=== PATIENT | female | born 1990 | race Caucasian/White ===

== ENCOUNTER 2021-12-26 00:27 | Day surgery (SDC) | payer OTHER, SELFPAY ==
[2021-12-20 14:52] VITALS: BMI 28.8
--- NOTE | 2021-12-20 15:25 | PC.NURSE ---
Report to the Outpatient Waiting Room, entrance under the green pavilion located off [facility], at time 0600 on date 12/26/2021. OR Time: 0730 Time changes happen often and if your time is changed the preop area will call you the afternoon before. - You and your visitor will be asked to self-screen and do not enter if you have any COVID symptoms. - Only one visitor and NO children visitors are allowed at this time. - The patient visitor is requested to leave or wait in car when not with patient due to restrictions. - A mask is required within the hospital. Patients may have clear liquids (water, carbonated beverages, clear teas, apple juice) until 3 hours prior to surgery with a maximum of 20 ounces 0430. - No food from midnight until time of surgery - Infants may have breast milk until 4 hours before surgery, infant formula 6 hours prior to surgery. - Children will be allowed to drink immediately following surgery. If applicable, please bring a bottle or sippy cup to assist with drinking. Juice, water, soda, and popsicles are readily available. For infants on formula, please bring formula the day of surgery. Pacifiers are allowed. Take the following medications with a SIP of water the morning of surgery: N/A Medications to discontinue per physician: Vitamin D2 Date to take last dose 12/17/2021 (takes weekly every Friday) Please no make-up, nail ethiopian, hairspray, perfume, deodorant, or body powder the day of surgery. No jewelry (including any body piercings) or valuables the day of surgery, leave them at home. Please take a shower or bath the night before, or the morning of, surgery with an antibacterial soap. Wear comfortable, loose fitting clothing. Children are encouraged to wear pajamas. - Jewelry must be removed prior to entering the operating room. Rings and piercings that are not removed may be cut off. - The hospital will not accept responsibility for valuables. - Please leave all valuables, including medications, at home the day of surgery. If you are going home after surgery, a licensed warehouse delivery driver must drive you home. - NO public transportation without another adult. - We recommend that an adult stay with you for 24 hours following discharge. - We also recommend that you do not drive, make important decision, drink alcoholic beverages, or take any drugs that were not prescribed by your health care provider for at least 24 hours after your discharge time. For Pediatric surgeries, we recommend two adults accompany the child home (only one inside the building at this time). Follow any additional instructions given to you from your surgeon. If you or anyone in your household have experienced Covid symptoms in the past week, please notify your surgeon or the nurse liaison at the phone number below for possible testing. Telephone instructions given to Danii Berkowitz and asked if any additional questions and then verbalized understanding. Patient advised to call surgeon office or pre surgery nurse liaison [phone] if any additional questions.
[2021-12-26] VITALS (7 sets, daily range): BP systolic 96–115; BP diastolic 64–80; PULSE 49–76; RESP 14–18; TEMP 36.3; O2SAT 100; BMI 28.8
--- NOTE | 2021-12-26 06:38 | P.PNAN_ITS ---
Anes - Initial Pre Proc Eval Procedure: Operation Date: 12/26/21 07:30 Proposed Procedures p Laparoscopic Bilateral Salpingectomy - Geovani Schwartz MD Date/Time: 12/26/21 06:38 Surgeon: Geovani Schwartz MD Pre Op Diagnosis: sterilization Patient Data Age: 31 Gender: F Height: 1.68 m Weight: 81.1 kg Last Vital Signs Temp 36.3 C L 12/26/21 06:10 Pulse 76 12/26/21 06:10 Resp 14 12/26/21 06:10 BP 110/72 12/26/21 06:10 Pulse Ox 100 12/26/21 06:10 O2 Del Method Room Air 12/26/21 06:10 Allergies Allergy/AdvReac Type Severity Reaction Status Date / Time Sulfa (Sulfonamide Allergy Unknown Hives Verified 12/26/21 06:13 Antibiotics) Home Medications Medication Instructions Recorded Confirmed Type ergocalciferol (vitamin D2) 1,250 See Rx Instructions .Route .COMPLEX 12/20/21 12/26/21 History mcg (50,000 unit) capsule methocarbamol 500 mg tablet 500 mg PO Q8H PRN Muscle Spasm 12/20/21 12/20/21 History Patient hx anesthesia problems: none Family hx anesthesia problems: none Results Review: All pre-operative results and documents have been reviewed as part of the pre- operative evaluation. [facility] Past Medical History Medical History Overweight Smoker Surgical History Surgical History (Updated 12/26/21 @ 06:38 by Ramy Kebede MD) History of cholecystectomy Hx of tonsillectomy Social History Social History Smoking packs per day: 0.5 Smoking cigarettes per day: 10.0 Years smoked: 13 Smoking pack-years: 6.50 Smoking status: Current every day smoker Tobacco type: cigarettes Second hand tobacco smoke exposure: No Alcohol intake: current Drinks per week: 1 Substance use: current Substance use type: marijuana Other substance usage details: has used cocaine in the past month but not regular user Last use: 12/20/2021 Living arrangements: with family Spiritual care concerns: No Anes - Eval Final PreProcedure Day of Procedure 12/26/21 06:38 Patient weight: overweight Heart: regular rate and rhythm Lungs: clear to auscultation Airway: Mallampati scale class II Neurological: alert and oriented Last oral intake: >/= 8 hours ASA classification: II Emergent: no Anesthetic plan: proceed Anesthesia type and monitoring: general ETT and standard monitoring Results Review: All pre-operative results and documents have been reviewed as part of the pre- operative evaluation. Informed Consent: The patient's anesthetic plan and its attendant risks and benefits were discussed with the patient/family/POA. Questions were solicited and answers provided to the satisfaction of the patient/family/POA.
[2021-12-26] MEDS: LACTATED RINGERS 1,000 ML 30 ML IV CONT (06:55)
[2021-12-26] MEDS: ACETAMINOPHEN 500 MG TABLET 1000 MG PO (06:56)
[2021-12-26] MEDS: KETOROLAC 15 MG/ML VIAL (*BKC) IV PUSH (06:56)
--- NOTE | 2021-12-26 07:05 | WPDHPUPDATE1 ---
History and Physical Update Update Date/Time: 12/26/21 07:05 History and Physical has been reviewed, including an updated exam of the patient. There are NO changes in the patient's condition. Risks, benefits, and alternatives have been discussed and questions answered. Patient agrees to proceed with procedure.
--- NOTE | 2021-12-26 07:06 | WPDHPUPDATE1 ---
History and Physical Update Update Date/Time: 12/26/21 07:06 History and Physical has been reviewed, including an updated exam of the patient. There are NO changes in the patient's condition. Risks, benefits, and alternatives have been discussed and questions answered. Patient agrees to proceed with procedure.
--- NOTE | 2021-12-26 07:11 | PM.IMHP ---
H&P: HPI History of Present Illness Date/Time: 12/26/21 07:11 Chief Complaint: UnWanted fertility Narrative: This patient is a 31-year-old female presents for female sterilization. She desires sterilization we have agreed to perform laparoscopic bilateral salpingectomy. She understands the procedure. She understands that there is a failure rate. She understands there is risk to the procedure. She understands that injuries may occur that result in hospitalization, more surgery, severe illness. She understands there is risk of hemorrhage and infection. Review of Systems Review of Systems: All systems reviewed & are unremarkable except as noted in HPI and below Constitutional: Constitutional: Denies chills, Denies fatigue, Denies fever(s) and Denies weakness Eyes: Eyes: Denies blurry vision, Denies change in vision, Denies loss of peripheral vision, Denies loss of vision, Denies other visual disturbances and Denies eye pain ENT: Denies vertigo, Denies dizziness, Denies hearing loss, Denies mouth pain, Denies nasal obstruction, Denies neck mass and Denies neck pain Cardiovascular: Cardiovascular: Denies chest pain, Denies diaphoresis, Denies syncope, Denies leg edema and Denies dyspnea Respiratory: Respiratory: Denies chest congestion, Denies cough, Denies hemoptysis, Denies dyspnea and Denies wheezing Gastrointestinal: Gastrointestinal: Denies abdominal pain, Denies constipation, Denies diarrhea, Denies nausea and Denies vomiting Genitourinary: Genitourinary: Denies hematuria, Denies change in libido, Denies nocturia, Denies genital lesions, Denies flank pain and Denies urinary urgency Musculoskeletal: Musculoskeletal: Denies abnormal gait, Denies back pain, Denies myalgias, Denies arthralgias, Denies joint swelling, Denies muscle weakness and Denies neck pain Integumentary/Breasts: Skin/Breast: Denies swelling, Denies breast pain, Denies breast mass, Denies dry skin, Denies nipple discharge, Denies unusual bruising and Denies jaundice Neurologic: Denies Neuro-related abnormal movements, Denies Abnormal speech present, Denies abnormal gait, Denies behavioral changes, Denies confusion, Denies vertigo, Denies dizziness, Denies syncope, Denies loss of vision, Denies memory loss, Denies convulsions and Denies weakness Psychiatric: Psychiatric: Denies abnormal sleep pattern, Denies behavioral changes, Denies change in libido, Denies confusion, Denies depression, Denies anhedonia and Denies memory loss Endocrine: Endocrine: Reports no additional endocrine complaints, Denies change in libido and Denies fatigue Hematologic/Lymphatic: Hematologic/Lymphatic: Reports no additional hematologic/lymphatic complaints Allergic/Immunologic: Allergic/Immunologic: Reports no additional allergic/immunologic complaints and Denies wheezing PMFSH Past Medical History Medical History Overweight Smoker Surgical History Surgical History (Updated 12/26/21 @ 06:38 by Ramy Kebede MD) History of cholecystectomy Hx of tonsillectomy Social History Social History Smoking packs per day: 0.5 Smoking cigarettes per day: 10.0 Years smoked: 13 Smoking pack-years: 6.50 Smoking status: Current every day smoker Tobacco type: cigarettes Second hand tobacco smoke exposure: No Alcohol intake: current Drinks per week: 1 Substance use: current Substance use type: marijuana Other substance usage details: has used cocaine in the past month but not regular user Last use: 12/20/2021 Living arrangements: with family Spiritual care concerns: No Meds Home Medications and Allergies Home Medications Medication Instructions Recorded Confirmed Type ergocalciferol (vitamin D2) 1,250 See Rx Instructions .Route .COMPLEX 12/20/21 12/26/21 History mcg (50,000 unit) capsule methocarbamol 500 mg tablet 500 mg PO Q8H PRN Muscle Spasm 12/20/21 12/20/21 History Allergies
[2021-12-26] MEDS: fentaNYL CITRATE INJ (*CRX) 100 MCG/2 ML VIAL 25 MCG IV PUSH ×4 (08:18→08:39)
[2021-12-26] MEDS: oxyCODONE HCL (*CRX) 5 MG TAB IR PO (09:00)
--- NOTE | 2021-12-26 10:37 | W.PM.PROC2 ---
Procedure Note - Detailed Date of Procedure 12/26/21 Pre-op Diagnosis sterilization Post-op Diagnosis Same Procedure Performed Laparoscopic bilateral salpingectomy Surgeon Geovani Schwartz MD Anesthesia General Indications Unwanted fertility Findings Normal pelvic anatomy Description of Procedure The patient was taken the operating room. She was prepped and draped in the dorsal lithotomy position after induction of general anesthesia. A 5 mm skin incision was made in the left upper quadrant of the abdominal skin. A 5 mm trocar was inserted the intra-abdominal cavity under direct visualization of the scope. Pneumoperitoneum was achieved. A 5 mm trocar was inserted in the left lower quadrant identical fashion. A 5 mm infraumbilical trocar was inserted in identical fashion as well. The bilateral fallopian tubes were removed. This was done by using a LigaSure cautery. The mesosalpinx adjacent to the tube was cauterized transected with LigaSure. This was initiated in the area the ovary and in a stepwise fashion moved medially to the area of the cornu of the uterus. Once there the fallopian tube was cauterized and transected. This was done in identical fashion on each side. The fallopian tubes were taken out through the left lower quadrant trocar site. The pneumoperitoneum was reduced. The trocars removed. The skin was closed with subcuticular 4 Monocryl and covered with Dermabond. She was taken to cover stable condition. Sponge lap and needle counts were correct x2. Estimated Blood Loss -5.0 Urine Output -150.0 Drains No Packing No Pathology Yes Complications No immediate complications Condition Stable Disposition PACU
== END 2021-12-26 09:41 | disposition home or self-care (01) ==
PROVIDERS: Visit Provider Obstetrics & Gynecology
PROC: (CPT 49320; principal; 2021-12-26 07:30)
DX: Z30.2 Encounter for sterilization (principal); F17.210 Nicotine dependence, cigarettes, uncomplicated; F12.90 Cannabis use, unspecified, uncomplicated; F14.90 Cocaine use, unspecified, uncomplicated
CPT/HCPCS: 58661; 88302; A9270; J1100; J1885; J2250; J2405; J2704; J3010; J7030; J7120